=== PATIENT | female | born 1980 | race Caucasian/White ===

== ENCOUNTER 2020-10-06 08:08 | Emergency (ER) | payer MEDICAID, OTHER ==
--- NOTE | 2020-10-06 08:41 | CR ---
[id number] RAD/RAD Fingers Left EXAM: 3 VIEWS FIFTH DIGIT. INDICATION: CRUSH INJURY COMPARISON: None. DISCUSSION: Acute multi fragmentary fracture involving the fifth tuft. There is associated soft tissue abnormality. No other fractures are identified. No dislocation. IMPRESSION: 1. As above. Wyatt Santos DO 10/06/20 0840 Thank you for allowing us to participate in the care of your patient.
[2020-10-06] MEDS ORDERED: Bupivacaine 0.5% 10 ML SDV ONE (08:53)
--- NOTE | 2020-10-06 10:59 | EDM.PDOC ---
ED HPI GENERAL MEDICAL PROBLEM - General Chief Complaint: Upper Extremity Injury/Pain Stated Complaint: SMASHED PINKY Time Seen by Provider: 10/06/20 08:25 Source of Information: Reports: Patient History Limitations: Reports: No Limitations - History of Present Illness INITIAL COMMENTS - FREE TEXT/NARRATIVE: 40-year-old female smashed her left small finger this morning while loading the fire stove. She pinched it between 2 logs. She noticed immediate pain and bleeding coming from the nail. Patient states that she noticed some soft tissue coming from underneath the nail and thought that this should be further evaluated in the emergency room. She reports throbbing of the finger. She has no problem with movement of the finger. She covered this with a kitchen cough and ice. No other concerns are voiced. Onset Date: 10/06/20 Onset Time: 07:30 Duration: Minutes: Location: Reports: Upper Extremity, Left Quality: Reports: Throbbing Severity: Moderate Improves with: Reports: Cold Therapy Worsens with: Reports: Movement Context: Reports: Trauma Associated Symptoms: Reports: No Other Symptoms Treatments CURATORIAL ASSISTANT: Reports: Acetaminophen Left Finger-Little Pain Score (Numeric/FACES): 7 - Related Data Allergies Allergy/AdvReac Type Severity Reaction Status Date / Time NSAIDS (Non-Steroidal Allergy Swelling Verified 10/06/20 08:20 Anti-Inflamma Penicillins Allergy Swelling Verified 10/06/20 08:20 Social & Family History - Tobacco Use Tobacco Use Status *Q: Never Tobacco User Review of Systems - Review of Systems Review Of Systems: Comprehensive ROS is negative, except as noted in HPI. ED EXAM, GENERAL - Physical Exam Exam: See Below Exam Limited By: No Limitations General Appearance: Alert, WD/WN, No Apparent Distress Eye Exam: Bilateral Eye: EOMI Ears: Hearing Grossly Normal Nose: Normal Inspection Throat/Mouth: Normal Voice, No Airway Compromise Head: Atraumatic, Normocephalic Neck: Normal Inspection Respiratory/Chest: No Respiratory Distress Extremities: Other (Disruption of the nail of the left fifth finger with bleeding and soft tissue laceration around the nail and ecchymosis along the fat pad of the finger. No limitation or pain at the DIP PIP or metacarpal joint she is able to bend the finger without difficulty. There is obvious nailbed laceration visualized.) Neurological: Alert, Oriented, CN II-XII Intact, No Motor/Sensory Deficits Psychiatric: Normal Affect, Normal Mood Skin Exam: Warm, Dry, Intact, Normal Color, No Rash Lymphatic: No Adenopathy ED TRAUMA EXTREMITY PROCEDURES - Laceration/Wound Repair Left Distal Digit - 5th (Baby) Appearance: Irregular, Mildly Contaminated Distal NVT: Neuro & Vascular Intact, No Tendon Injury Anesthetic Type: Digital Local Anesthesia - Bupivicaine (Marcaine): 0.25% Plain Local Anesthetic Volume: 5cc Skin Prep: Chlorhexidine (Hibiciens), Providone-Iodine (Betadine), Saline, St erile Drape Saline Irrigation (cc's): 20 Exploration/Debridement/Repair: Wound Explored, In a Bloodless Field, Wound Margins Revised Suture Size: 4-0 # of Sutures: 5 Suture Type: Nylon Suture Size: 4-0 # of Sutures: 4 Repaired With: Vicryl Drain Placement: No Sterile Dressing Applied: Provider Tetanus Status Addressed: Yes Complications: No Progress/Comments: Fingers was soaked in Betadine saline solution. Digital block was performed with 5 cc of quarter percent Marcaine. Fingers and hand were then draped in usual sterile fashion. Sterile drapes were applied. The nail was then removed using a [place] elevator and hemostat. Nailbed laceration was then irrigated with a mixture of sterile saline and peroxide. Nailbed then was repaired using 4-0 Vicryl and margins were approximated. 4-0 nylon was then used to close the remaining skin edges outside of the nailbed. The nail was soaked in line and peroxide and cleaned with freer elevator. Nail was then replaced for the nailbed laceration repair and 4-0 Vicryl sutures were then used to anchor the nail to the finger. Sterile dressings were applied and a gauntlet type splint was placed to protect the fingers. Patient tolerated procedure well. Course - Vital Signs Last Recorded V/S: Last Vital Signs Temp 96.9 F 10/06/20 08:13 Pulse 98 10/06/20 08:13 Resp 14 10/06/20 08:13 BP 164/113 H 10/06/20 08:13 Pulse Ox 97 10/06/20 08:13 - Orders/Labs/Meds Meds: Medications Discontinued Medications Generic Name Dose Route Start Last Admin Trade Name Freq PRN Reason Stop Dose Admin Bupivacaine HCl Confirm 10/06/20 08:53 02/26/21 08:53 Sensorcaine-Mpf 0.5% Administered 10/06/20 08:54 10 ml Dose Administration 10 ml .ROUTE .[facility] - Radiology Interpretation Free Text/Narrative:: Ray 3 views of the left fifth finger Indication : Crush injury Comparison: None Discussion: Acute multi-fragmented fracture involving the fifth tough. There is associated soft tissue abnormality. No other fractures are identified. No dislocation. Impression: As above Departure - Departure Time of Disposition: 10:55 Disposition: Home, Self-Care 01 Condition: Good Clinical Impression: Closed fracture of tuft of distal phalanx of finger Nailbed laceration, finger Qualifiers: Encounter type: initial encounter Qualified Code(s): S61.319A - Laceration without foreign body of unspecified finger with damage to nail, initial encounter - Discharge Information Instructions: Nail Bed Injury, [id number] Referrals: Daniela Norwood CUTTING INSPECTOR [Primary Care Provider] - Forms: ED Department Discharge Additional Instructions: 1. Leave dressing in place until Friday. Continue with elevation. 2. Follow-up in [place] at [facility] October 09 9:30 AM for dressing change with the nurse. 3. Follow-up appointment with Dr. Smyth in [facility] October 12 at 11:15 AM 4. Clindamycin 150 mg 3 times daily with food for 5 days. Sepsis Event Note (ED) - Evaluation Sepsis Screening Result: No Definite Risk - Focused Exam Vital Signs: Vital Signs Temp Pulse Resp BP Pulse Ox 10/06/20 08:13 96.9 F 98 14 164/113 H 97 - Assessment/Plan Assessment:: 1. Tuft fracture left fifth distal phalanx 2. Nailbed laceration left fifth finger Plan: 1. Leave dressing in place until Friday. Continue with elevation. 2. Follow-up in [place] at [facility] October 09 9:30 AM for dressing change with the nurse. 3. Follow-up appointment with Dr. Smyth in [facility] October 12 at 11:15 AM 4. Clindamycin 150 mg 3 times daily with food for 5 days.
== END 2020-10-06 10:50 | disposition home or self-care (01) ==
LOC: KA.ED 08:08
DX: S62.637A Displaced fracture of distal phalanx of left little finger, initial encounter for closed fracture (principal); Z88.8 Allergy status to other drugs, medicaments and biological substances; Z88.0 Allergy status to penicillin; W23.0XXA Caught, crushed, jammed, or pinched between moving objects, initial encounter
CPT/HCPCS: 11760; 73140-F4; 99283; 99283-25; J3490